=== PATIENT | female | born 1995 | race African-American/Black ===

== ENCOUNTER 2018-01-03 14:48 | Emergency (ER) | payer OTHER, SELFPAY ==
[2018-01-03 14:51] VITALS: BP 133/81; PULSE 71; RESP 16; TEMP 36.6; O2SAT 98; BMI 30.2
--- NOTE | 2018-01-03 15:31 | ED.DCSUM_ITS ---
- ER Visit Summary Date of Service: 01/03/18 Chief Complaint: Abdominal pain, rectal bleeding History of Present Illness: The patient is a 22 F who reports rectal pain, constipation, and blood in her stool for the past couple of days. She denies passing clots. She has some dysuria this morning with some lower abdominal pain. She is taking a beat supplement for workouts, but states it definitely appears to be blood in her stool. She is currently on her menstrual cycle as well. She has no history of IBS or ulcerative colitis. Physical Examination: Vital signs unremarkable. Patient is sitting in a bedside chair. She is in no acute distress. Head and neck examination is normal. Heart is regular rate and rhythm. Lung sounds are clear. Abdomen is soft with mild tenderness in the suprapubic area. Active bowel sounds are noted throughout. Rectal examination reveals no obvious hemorrhoids or fissures. She does have significant tenderness with finger insertion. There is no blood on gloved finger. There is no stool in the rectal vault at this time. Test Results: CBC and chemistry studies are unremarkable. Coags normal. Urinalysis unremarkable. test negative. Gonorrhea and Chlamydia tests were sent and she did test positive for gonorrhea. Her stool guaiac returned positive. CT abdomen and pelvis with IV contrast shows probable rectosigmoid colitis. Emergency Department Course and Treatment: Patient will be treated with Rocephin and Zithromax here for her gonorrhea. She is to notify any partners the need to be tested and treated as well. She will be given Cipro and Flagyl for home. She is referred to Dr. Huddleston for follow-up, next on the no doc list. Treatment Plan: [] Disposition: Discharge Impression: 1. Colitis 2. Gonorrhea This note was generated with [employer] software. It may contain incorrect words, spelling, and punctuation that were not noted in review of the chart prior to signing ED Disposition - Plan for ED Patient: Chief Complaint: GI Bleed Referrals: NOT,DEFINED [NON-STAFF] -
[2018-01-03] MEDS: 0.9% Normal Saline 1,000 ML 150 ML IV (15:43)
[2018-01-03] MEDS: Ketorolac 30 MG/ML Syringe IV (15:43)
[2018-01-03] MEDS: Ondansetron 4 MG/2 ML Vial IV (15:43)
[2018-01-03 15:57] LABS: Bacteria 0 SEEN /hpf (None Seen); Mucous, Urine 0 SEEN /hpf (<or=2+); White Blood Cells 0 SEEN /hpf (0-5)
[2018-01-03 16:07] LABS: Absolute Lymphocyte Count 1.89 X10^3/ul (0.83-4.51); Absolute Neutrophil Count 6.7 X10^3/uL (2.0-7.7); Basophil# 0.03 X10^3/uL; Basophil% 0.3 % (0-1); Eosinophil# 0.05 X10^3/uL; Eosinophils% 0.5 % (0-5); Hematocrit 37.2 % (37-47); Hemoglobin 12.3 g/dl (12.0-15.0); Lymphocyte # 1.89 X10^3/ul (4.0); Lymphocyte % 20.4 % (19-41); Mean Corp Hgb Conc 33.1 g/gl (32-36); Mean Corpuscular Hgb 25.9 pg (27.0-32.0); Mean Corpuscular Volume 78.3 fL (81-99); Monocyte# 0.61 X10^3/uL; Monocyte% 6.6 % (0-10); Neutrophil # 6.68 X10^3/uL (2.7-7.7); Neutrophil % 72.1 % (47-70); Platelet Count 221 K/mm3 (150-450); RBC Distribution Width CV 13.3 % (11.6-14.6); RBC Distribution Width SD 37.6 fl (35.1-43.9); Red Blood Count 4.75 M/mm3 (4.2-5.4); White Blood Count 9.3 K/mm3 (4.4-11.0)
[2018-01-03 16:10] LABS: POSITIVE COUNT NO; POSITIVE DIFFERENTIAL NO; POSITIVE MORPHOLOGY NO
[2018-01-03 16:24] LABS: Prothrombin Time (Protime)PT. 12.9 SECONDS (11.7-14.9)
[2018-01-03 16:25] LABS: Partial Thromboplast Time 31.9 Seconds (24.1-36.2)
[2018-01-03 16:30] LABS: Color, Urine Yellow (Yellow); Glucose, Dipstick Normal (Normal); Ketone-Dipstick Negative (Negative); Leukocyte Esterase-Dipstick Negative /ul (Negative); Nitrite-Dipstick Negative (Negative); Occult Blood-Urine 250 /ul (Negative); Protein-Dipstick Negative (Negative); Specific Gravity, Urine 1.015 (1.002-1.030); Urine Bilirubin Dipstick Negative (Negative); Urine Clarity Clear (Clear); Urine Urobilinogen Normal (Normal)
[2018-01-03 16:35] LABS: Anion Gap 5 (5-15); BUN 8 mg/dL (7-18); BUN/Creat Ratio 10.8 RATIO (10-20); Calcium,Total 8.2 mg/dL (8.5-10.1); Chloride 106 mmol/L (98-107); Creatinine, Serum 0.74 mg/dL (0.55-1.02); EST Glomerular Filtration Rate 103 mL/min (>60); Est Glom Filt Rate - Afr Amer 125 mL/min (>60); Estimated Creatinine Clearance 89.98 ml/min; Glucose 83 mg/dL (74-106); Potassium 3.5 mmol/L (3.5-5.1); Sodium Level 139 mmol/L (136-145)
[2018-01-03 16:42] LABS: Red Blood Cells-Urine 0-5 SEEN /hpf (0-5); Squamous Epithelial Cells - UA 0-5 SEEN /hpf (5-10)
[2018-01-03 17:05] LABS: Pregnancy, Serum, hCG Quali. NEGATIVE Negative (0-9 Nonpreg)
[2018-01-03 17:26] VITALS: BP 118/70; PULSE 67; RESP 15; O2SAT 100
--- NOTE | 2018-01-03 17:30 | CT_ITS ---
STUDY: CT ABDOMEN AND PELVIS WITH CONTRAST REASON FOR EXAM: Female, 22 years old. Rectal bleeding. RADIATION DOSAGE (If Supplied By Facility): CTDIvol = ( 17.69 ) mGy, DLP = ( 1181.54 ) mGycm TECHNIQUE: Transaxial images were obtained from the dome of the diaphragm to the symphysis pubis without oral contrast. 100 ml of Isovue 300 contrast was administered. Sagittal and coronal images were reconstructed. Individualized dose optimization techniques were used for this CT. COMPARISON: None. FINDINGS: The visualized lung bases are unremarkable. The visualized portions of the heart are within normal limits. There is hepatomegaly with diffuse hepatic enlargement. There is no evidence of mass. Normal gallbladder and extrahepatic biliary system. Normal spleen. Normal pancreas. Normal bilateral adrenal glands. Normal right kidney. Normal left kidney. Normal visualized stomach. Normal small intestine. The proximal colon. There is marked narrowing of the colon in the rectosigmoid region suggesting possible colitis. There is minimal stranding of the adjacent mesenteric fat. The appendix is visualized and appears normal. Normal abdominal aorta. Normal inferior vena cava. Normal retroperitoneum. Normal urinary bladder. Normal uterus and ovaries. There is free fluid in the posterior cul-de-sac. No free air is seen within the peritoneal cavity. There is no pelvic lymphadenopathy. Is minimal stranding of the subcutaneous fat of the abdominal wall and flanks. Normal osseous structures. CT/Abdomen/Pelvis W IV Cont ONLY IMPRESSION: 1. Probable rectosigmoid colitis. 2. Free fluid in the posterior cul-de-sac which may be physiologic. 3. Hepatomegaly without mass. Electronically Signed: Jay Shepard DO at 18:08 EDT Tel [phone], Service support ,
[2018-01-03 17:37] LABS: Chlamydia Trachomatis by PCR Negative (Negative); Probe Check PASS
[2018-01-03 17:43] LABS: Neisserai gonorrhoeae by PCR Positive (Negative)
--- NOTE | 2018-01-03 17:43 | ED.RN ---
this rn received call from lab. pt positive for gonorrhea. dr. chad domínguez.
--- NOTE | 2018-01-03 18:55 | ED.DEP ---
ED Disposition - Plan for ED Patient: Disposition: Home or Assisted Living Chief Complaint: GI Bleed Instructions: ED Gastroenteritis Bacterial, ED Gonorrhea Female Prescriptions: Ciprofloxacin [Cipro] 500 mg PO BID #14 tablet Metronidazole [Flagyl] 500 mg PO Q6H #40 tablet Referrals: Jett Huddleston DO [NON CLINICAL AFFILIATE] - 1-2 Weeks
[2018-01-03 19:07] VITALS: BP 114/70; PULSE 71; RESP 16; O2SAT 99
[2018-01-03] MEDS: Azithromycin 250 MG Tablet 1000 MG PO (19:17)
[2018-01-03] MEDS: Ceftriaxone 500 MG Vial 250 MG IM (19:18)
[2018-01-03 19:53] VITALS: BP 127/68; PULSE 76; RESP 16; O2SAT 99
--- NOTE | 2018-01-03 19:54 | NURSING ---
pt d/c answered questions about the gonarhhea antibiotics, no further questions. pt waited shot time, no rx noted.
== END 2018-01-03 19:55 | disposition home or self-care (01) ==
PROVIDERS: Emergency Provider Emergency Medicine
DX: K52.9 Noninfective gastroenteritis and colitis, unspecified (principal); A54.9 Gonococcal infection, unspecified
CPT/HCPCS: 74177; 80048; 81001; 82274; 84703; 85025; 85610; 85730; 87491; 87591; 96361; 96372; 96374; 96375; 99284; J7030; Q9967; A4216; J2405